=== PATIENT | male | born 1965 | race Caucasian/White ===

== ENCOUNTER 2023-08-03 12:01 | Emergency (ER) | payer BC, SELFPAY ==
[2023-08-03 12:05] VITALS: BP 154/89; PULSE 87; RESP 18; TEMP 36.4; O2SAT 96
--- NOTE | 2023-08-03 12:09 | ED.GENADUL_ITS ---
Discharge Plan Disposition Patient Disposition: Home Condition: Stable Discharge Details Clinical Impression: Laceration of left knee Primary Care Provider: Racheal,Local ED Provider: Marvin Villarreal Home Meds and New Rx's Prescriptions: New cephalexin 500 mg capsule 500 mg PO QID 3 Days Qty: 12 0RF Discharge Instructions Instructions: Cephalexin (By mouth), Laceration (ED) Additional Instructions: You were seen in the emergency department for your left knee laceration that was repaired by 8 sutures. Please return in 7 to 10 days for suture removal. Please return earlier for any signs of infection like increasing pain and redness, drainage of pus from the area, red streaking up the skin away from the wound, pain with passive range of motion of the knee. It is best to keep it immobile for the first 48 hours to allow the wound to start to heal before you put excessive tension on the skin over large joints of the body. Take the prophylactic antibiotics sent to [facility] in [place] as directed. Please use therapeutic dosing of Tylenol (acetamenophen) & Advil (ibuprofen) in an alternating fashion as follows: Take 1000mg of Tylenol every 6 hours without missing doses- that is 4 times per day. Detention in between the Tylenol dosings, take 400-600mg of Advil also on a 6 hour schedule, that is also 4 times per day. The daily maximum dosing of Tylenol is 4000mg, and the daily maximum dosing of Advil is 2400mg. This is safe to do for weeks. Please note that some common cold medications & prescription pain medications may contain acetamenophen and you need to read OTC drug labels and factor that in to maximum daily dosings. Please purchase [id number] Hibiclens soap to use around the wound while showering. HPI General Date/Time Provider Initiated Documentation: 08/03/23 12:09 . HPI Narrative: 57 year-old male presents to ED today by POV/ambulating with his with a chief complaint of chainsaw laceration to L knee area with onset just prior to arrival. He was cutting [place] his property- was not using chaps, is able to ambulate. Quality described as mildly painful, stings, no radiation to numbness/tingling, serous drainage, gross contamination, inability to ambulate. Severity is described as 1/10. Palliating factors include nothing needed. Provoking factors include nothing specific. Events leading up to the incident/Associated Symptoms: Tdap is out-of-date. Patient not anticoagulated. Related Data Home Medications Medication Instructions Recorded Confirmed cephalexin 500 mg capsule 500 mg PO QID prophylaxis 3 days 08/03/23 #12 caps Previous Rx's Medication Instructions Recorded cephalexin 500 mg capsule 500 mg PO QID prophylaxis 3 days 08/03/23 #12 caps Allergies Allergy/AdvReac Type Severity Reaction Status Date / Time No Known Allergies Allergy Unverified 08/03/23 12:08 General Stated Complaint: Laceration MURRAY: 3 Review of Systems All systems reviewed & are unremarkable except as noted in HPI and below Exam Narrative Exam Narrative: GENERAL APPEARANCE: Well-nourished, non-toxic, awake and alert, atraumatic, no acute distress. SKIN: Warm, pink, dry, intact, 9cm linear irregular border laceration to inferior medial L knee, no joint capsule involvement, no tendons visualized, no gross contamination, sensation and circulation intact distally, no active bleeding. HEAD: Normocephalic, atraumatic, normal hair distribution for gender/age. EYES: Normal conjunctiva, no exudates on lids/lashes. ENT: Nares patent, no circumoral cyanosis, no facial swelling NECK: Supple, trachea midline, painless cervical ROM. LUNGS/CHEST: Non-labored respirations, normal A/P diameter, symmetrical expansion, no chest wall deformity HEART (CV/PV): No peripheral edema, no JVD. ABDOMEN: Soft, non-distended, no guarding. MSK: Normal ROM, no swelling/deformity to bilateral UEs or LEs, moving all extremities without weakness, no cyanosis, spine midline without tenderness, normal curvature. NEURO: Mental Status AAOx4 - alert to person, place, time, events No facial droop, no forehead involvement. Motor: No focal weakness - strength 5/5 in bilateral UEs and LEs, proximal and distal, symmetric. Sensory: sensation intact to light touch globally. Gait normal: patient ambulated without ataxia into ED room. PSYCH: euthymic, cooperative, pleasant, appropriate speech Course Vital Signs Vital signs: Vital Signs Temperature 36.4 C L 08/03/23 12:05 Pulse 87 08/03/23 12:05 Respiratory Rate 18 08/03/23 12:05 Blood Pressure 154/89 H 08/03/23 12:05 Pulse Oximetry 96 08/03/23 12:05 Temperature 36.4 C L 08/03/23 12:05 Pulse 87 08/03/23 12:05 Respiratory Rate 18 08/03/23 12:05 Blood Pressure 154/89 H 08/03/23 12:05 Pulse Oximetry 96 08/03/23 12:05 Medical Decision Making This dictation utilizes [id number] dictation software and may contain unedited grammatical errors. 57 y/o M presents to ED today with a chief complaint of chainsaw laceration to L knee, 9cm - irregular no active bleeding, no severe pain or numbness distally. Patients Tdap is not UTD. Patients' medical history: noncontributory. Family and social history: noncontributory. Pertinent exam findings / vital signs include SKIN: Warm, pink, dry, intact, 9cm linear irregular border laceration to inferior medial L knee, no joint capsule involvement, no tendons visualized, no gross contamination, sensation and circulation intact distally, no active bleeding.. Differential / pathologies of concern include Laceration, Joint Capsule Puncture, Not Fracture. Diagnostic studies of: -None. Interventions of: -Copious irrigation as well as cleaning with dilute Hibiclens, suture repair, prophylactic antibiotics. ED Course/Assessment/Plan: 9 cm chainsaw laceration to the left inferior knee not involving the joint capsule was repaired with 8 sutures of 3-0 Ethilon, patient tolerated procedure well, started on prophylactic antibiotics sent to [facility] in [place], counseled on generalized wound care, strict return criteria for signs of infection, encouraged keeping it immobile for the first 48 hours for better adherence of the tissue over likely skin tension at a large joint of the body. Findings not consistent with tendon rupture, joint capsule involvement, neurovascular compromise, active bleeding. Disposition of laceration of left knee. Patient verbalized understanding of the plan and return to ED criteria and engaged in shared decision making. Medical Records Medical records reviewed: Yes I reviewed the patient's medical records. Quality:SDOH Health Related Social Needs: No Data to Display PFSH All Active Problems (Updated 08/03/23 @ 13:32 by GORAN Anne) Laceration of left knee (Acute) Social History Smoking/Tobacco Use Status: Never Smoking risk assessment performed?: Yes Substance use type: does not use Housing: house Do you feel safe at home: Yes Do you feel safe in your relationship?: Yes
[2023-08-03 13:58] VITALS: BP 144/74; PULSE 76; RESP 18; TEMP 36.4; O2SAT 96
== END 2023-08-03 13:58 | disposition home or self-care (01) ==
LOC: ER 14:01
PROVIDERS: Emergency Provider Physician Assistant
DX: S81.012A Laceration without foreign body, left knee, initial encounter (principal); Z23 Encounter for immunization; W29.3XXA Contact with powered garden and outdoor hand tools and machinery, initial encounter; Y93.H2 Activity, gardening and landscaping; Y92.017 Garden or yard in single-family (private) house as the place of occurrence of the external cause
CPT/HCPCS: 12004; 90471; 90715; 99283